=== PATIENT | female | born 1955 | race Caucasian/White ===

== ENCOUNTER 2023-03-04 06:33 | Day surgery (SDC) | payer OTHER ==
[2023-03-02 12:46] VITALS: BMI 28.6
[2023-03-04] MEDS ORDERED: PROPOFOL 20 ML ONE (06:44)
[2023-03-04] MEDS ORDERED: Lidocaine 1% PF 5 ML VIAL ONE (06:45)
[2023-03-04] MEDS ORDERED: Midazolam HCl 2 mg/2 ml Vial ONE (07:38)
== END 2023-03-04 08:53 | disposition home or self-care (01) ==
LOC: CSHSDC 06:33
PROVIDERS: ATTEND Internal Medicine Gastroenterology
PROC: 0DJD8ZZ Inspection of Lower Intestinal Tract, Via Natural or Artificial Opening Endoscopic (ICD-10-PCS; principal; 2023-03-04)
DX: Z12.11 Encounter for screening for malignant neoplasm of colon (principal); K64.8 Other hemorrhoids; I10 Essential (primary) hypertension; E78.5 Hyperlipidemia, unspecified; K21.9 Gastro-esophageal reflux disease without esophagitis; F41.9 Anxiety disorder, unspecified; F32.A Depression, unspecified; Z86.010 Personal history of colon polyps; Z87.891 Personal history of nicotine dependence; Z91.018 Allergy to other foods; Z90.710 Acquired absence of both cervix and uterus
CPT/HCPCS: J2250; J2704

== ENCOUNTER 2023-03-11 08:56 | Outpatient (CLI) | payer OTHER | END 2023-03-11 08:57 | disposition home or self-care (01) | LOC: CSHMAMMO 08:56 | PROVIDERS: ATTEND Family Medicine | DX: Z12.31 Encounter for screening mammogram for malignant neoplasm of breast (principal) | CPT/HCPCS: 77063; 77067 ==

== ENCOUNTER 2024-03-30 12:24 | Outpatient (CLI) | payer OTHER | END 2024-03-30 12:25 | disposition home or self-care (01) | LOC: CSHMAMMO 12:24 | PROVIDERS: ATTEND Family Medicine | DX: Z12.31 Encounter for screening mammogram for malignant neoplasm of breast (principal) | CPT/HCPCS: 77063; 77067 ==